=== PATIENT | female | born 1950 ===

== ENCOUNTER 2021-01-05 11:10 | Emergency (ER) | payer MEDICARE, OTHER ==
--- NOTE | 2021-01-05 11:31 | EDM.PDOC ---
ED HPI GENERAL MEDICAL PROBLEM - General Chief Complaint: General Stated Complaint: FEVER X 4 DAYS/CHEST PAIN/TIGHTNESS IN CHEST Time Seen by Provider: 01/05/21 11:31 Source of Information: Reports: Patient, Family, Old Records, RN, RN Notes Dianelys jerez History Limitations: Reports: No Limitations - History of Present Illness INITIAL COMMENTS - FREE TEXT/NARRATIVE: Pt presents to ER from home by POV with c/o COVID symptoms since 12/25/20, and positive COVID test on 12/29/20. Pt comes to ER today because she is still feeling ill with fevers, cough, and chest pains. Pt reports decreased appetite, fatigue, and body aches. Denies shortness of breath. Onset Date: 12/25/20 Duration: Constant Location: Reports: Chest, Generalized Quality: Reports: Ache, Pressure Severity: Mild Improves with: Reports: None Worsens with: Reports: Breathing Associated Symptoms: Reports: No Other Symptoms Treatments UNCRATER: Reports: Acetaminophen - Related Data Allergies Allergy/AdvReac Type Severity Reaction Status Date / Time amoxicillin [From Augmentin] Allergy Cannot Verified 01/05/21 11:25 Remember clavulanic acid Allergy Cannot Verified 01/05/21 11:25 [From Augmentin] Remember Home Meds: Home Meds Acetaminophen [Tylenol Extra Strength] 1,000 mg PO Q6HR PRN 01/05/21 [History] Past Medical History - Infectious Disease History Infectious Disease History: Reports: Novel Coronavirus (12/25/20) Social & Family History - Tobacco Use Tobacco Use Status *Q: Never Tobacco User Second Hand Smoke Exposure: No - Caffeine Use Caffeine Use: Reports: Coffee - Recreational Drug Use Recreational Drug Use: No - Living Situation & Occupation Living situation: Reports: , with Spouse Occupation: Retired ED ROS GENERAL - Review of Systems Review Of Systems: Comprehensive ROS is negative, except as noted in HPI. ED EXAM, GENERAL - Physical Exam Exam: See Below Exam Limited By: No Limitations General Appearance: Alert, WD/WN, No Apparent Distress, Anxious Eye Exam: Bilateral Eye: Normal Inspection Ears: Hearing Grossly Normal Nose: Normal Inspection, Normal Mucosa, No Blood Throat/Mouth: Normal Inspection, Normal Lips, Normal Teeth, Normal Gums, Normal Oropharynx, Normal Voice, No Airway Compromise Head: Atraumatic, Normocephalic Neck: Normal Inspection, Supple, Non-Tender, Full Range of Motion Respiratory/Chest: No Respiratory Distress, Lungs Clear, Normal Breath Sounds, No Accessory Muscle Use, Chest Non-Tender Cardiovascular: Normal Peripheral Pulses, Regular Rate, Rhythm, No Edema, No Gallop, No JVD, No Murmur, No Rub GI/Abdominal: Normal Bowel Sounds, Soft, Non-Tender, No Organomegaly, No Distention, No Abnormal Bruit, No Mass Back Exam: Normal Inspection Extremities: Normal Inspection, Normal Range of Motion, Non-Tender, Normal Capillary Refill, No Pedal Edema Neurological: Alert, Oriented, CN II-XII Intact, Normal Cognition, Normal Gait, No Motor/Sensory Deficits Psychiatric: Normal Affect, Normal Mood Skin Exam: Warm, Dry, Intact, Normal Color, No Rash #1 Interpretation EKG Date: 01/05/21 Time: 11:39 Rhythm: Other (SR) Rate (Beats/Min): 77 [place]: LAD-Left [place] Deviation (borderline) P-Wave: Present QRS: Normal ST-T: Other (borderline abnormal/flat anterolateral T-waves) QT: Normal Comparison: NA - No Prior EKG Course - Vital Signs Last Recorded V/S: Last Vital Signs Temp 97.6 F 01/05/21 11:27 Pulse 85 01/05/21 11:27 Resp 18 01/05/21 11:27 BP 140/72 01/05/21 11:27 Pulse Ox 95 01/05/21 11:27 - Orders/Labs/Meds Orders: Active Orders 24 hr Category Date Time Status EKG 12 Lead [EKG Documentation Completion] [RC] STAT Care 01/05/21 11:31 Active Peripheral IV Care [RC] . DIRECTED Care 01/05/21 11:37 Active Chest wo Cont [CT] Urgent Exams 01/05/21 13:43 Taken CULTURE BLOOD [BC] Stat Lab 01/05/21 11:46 Received Sodium Chloride 0.9% [Saline Flush] Med 01/05/21 11:37 Active 10 ml FLUSH ASDIRECTED PRN Peripheral IV Insertion Adult [OM.PC] Stat Oth 01/05/21 11:37 Ordered Medication Orders Sodium Chloride (Sodium Chloride 0.9% 10 Ml Syringe) 10 ml FLUSH ASDIRECTED PRN PRN Reason: Keep Vein Open Last Admin: 01/05/21 11:50 Dose: 10 ml Documented by: TYRELL Labs: Laboratory Tests 01/05/21 01/05/21 01/05/21 Range/Units 11:46 11:46 11:46 WBC 3.0 L (5.0-10.0) 10^3/uL RBC 4.91 (4.2-5.4) 10^6/uL Hgb 16.0 (12.0-16.0) g/dL Hct 46.1 (37.0-47.0) % MCV 93.9 (80-100) fL MCH 32.6 (27.0-34.0) pg MCHC 34.7 (33.0-35.0) g/dL Plt Count 133 L (150-450) 10^3/uL Neut % (Auto) 56.6 (42.2-75.2) % Lymph % (Auto) 30.2 (20.5-50.1) % [place] % (Auto) 12.6 H (2-8) % Eos % (Auto) 0.3 L (1.0-3.0) % Baso % (Auto) 0.3 (0.0-1.0) % PT 10.4 (9.0-12.0) SEC INR 1.0 (0.9-1.2) APTT 24.7 (22.0-34.0) SEC D-Dimer, Quantitative 446 H (0-400) ng/mL Sodium (136-145) mmol/L Potassium (3.5-5.1) mmol/L Chloride (98-107) mmol/L Carbon Dioxide (21-32) mmol/L Anion Gap (7-13) mEq/L BUN (7-18) mg/dL Creatinine (0.55-1.02) mg/dL Est Cr Clr Drug Dosing mL/min Estimated GFR (MDRD) BUN/Creatinine Ratio (No establ ref range) Glucose (70-99) mg/dL Lactic Acid (0.4-2.0) mmol/L Calcium (8.5-10.1) mg/dL Ferritin (8-252) mg/mL Total Bilirubin (0.2-1.0) mg/dL AST (15-37) U/L ALT (14-59) U/L Alkaline Phosphatase (46-116) U/L Troponin I High Sens (<=51) pg/mL C-Reactive Protein (0.0-0.9) mg/dL B-Natriuretic Peptide (0-100) pg/ml Total Protein (6.4-8.2) g/dL Albumin (3.4-5.0) g/dL Globulin Albumin/Globulin Ratio 01/05/21 01/05/21 01/05/21 Range/Units 12:30 12:30 12:30 WBC (5.0-10.0) 10^3/uL RBC (4.2-5.4) 10^6/uL Hgb (12.0-16.0) g/dL Hct (37.0-47.0) % MCV (80-100) fL MCH (27.0-34.0) pg MCHC (33.0-35.0) g/dL Plt Count (150-450) 10^3/uL Neut % (Auto) (42.2-75.2) % Lymph % (Auto) (20.5-50.1) % [place] % (Auto) (2-8) % Eos % (Auto) (1.0-3.0) % Baso % (Auto) (0.0-1.0) % PT (9.0-12.0) SEC INR (0.9-1.2) APTT (22.0-34.0) SEC D-Dimer, Quantitative (0-400) ng/mL Sodium 139 (136-145) mmol/L Potassium 3.2 L (3.5-5.1) mmol/L Chloride 98 (98-107) mmol/L Carbon Dioxide 32 (21-32) mmol/L Anion Gap 12.2 (7-13) mEq/L BUN 14 (7-18) mg/dL Creatinine 0.67 (0.55-1.02) mg/dL Est Cr Clr Drug Dosing 71.05 mL/min Estimated GFR (MDRD) > 60 BUN/Creatinine Ratio 20.9 (No establ ref range) Glucose 112 H (70-99) mg/dL Lactic Acid 1.0 (0.4-2.0) mmol/L Calcium 8.6 (8.5-10.1) mg/dL Ferritin 586 H (8-252) mg/mL Total Bilirubin 0.7 (0.2-1.0) mg/dL AST 151 H (15-37) U/L ALT 161 H (14-59) U/L Alkaline Phosphatase 96 (46-116) U/L Troponin I High Sens 7 (<=51) pg/mL C-Reactive Protein 0.3 (0.0-0.9) mg/dL B-Natriuretic Peptide 28 (0-100) pg/ml Total Protein 7.3 (6.4-8.2) g/dL Albumin 3.4 (3.4-5.0) g/dL Globulin 3.9 Albumin/Globulin Ratio 0.9 Meds: Medications Generic Name Dose Route Start Last Admin Trade Name Freq PRN Reason Stop Dose Admin Sodium Chloride 10 ml 01/05/21 11:37 01/05/21 11:50 Sodium Chloride 0.9% 10 Ml Syringe FLUSH 10 ml ASDIRECTED PRN Administration Keep Vein Open Discontinued Medications Generic Name Dose Route Start Last Admin Trade Name Freq PRN Reason Stop Dose Admin Dexamethasone 6 mg 01/05/21 11:38 01/05/21 11:50 Dexamethasone 4 Mg/Ml Sdv IVPUSH 01/05/21 11:39 6 mg ONETIME ONE Administration Potassium Chloride 60 meq 01/05/21 13:42 Potassium Chloride 10 Meq Tab.Er PO 01/05/21 13:43 ONETIME ONE - Radiology Interpretation Free Text/Narrative:: CT Chest: patchy ground glass opacities, mild and bilateral, see Rad. report. Departure - Departure Time of Disposition: 14:25 Disposition: Home, Self-Care 01 Condition: Good Clinical Impression: COVID-19 virus infection, Hypokalemia - Discharge Information *PRESCRIPTION DRUG MONITORING PROGRAM REVIEWED*: Not Applicable *COPY OF PRESCRIPTION DRUG MONITORING REPORT IN PATIENT AYAZ: Not Applicable Instructions: 10 Things You Can Do to Manage Your COVID-19 Symptoms at Home - CDC, Hypokalemia, Potassium Content of Foods Forms: ED Department Discharge Additional Instructions: Rx: Decadron (Dexamethasone) 6mg Eat three meals a day even if your appetite is poor. Eat bananas, spinach, or potato with the skins to increase your potassium. Follow up in clinic if not improving in 7 to 10 days. Call 911 or return to ER if your develop difficulty breathing. Sepsis Event Note (ED) - Evaluation Sepsis Screening Result: No Definite Risk - Focused Exam Vital Signs: Vital Signs Temp Pulse Resp BP Pulse Ox 01/05/21 11:27 97.6 F 85 18 140/72 95 - My Orders Last 24 Hours: My Active Orders 01/05/21 11:31 EKG 12 Lead [EKG Documentation Completion] [RC] STAT 01/05/21 11:37 Peripheral IV Care [RC] . DIRECTED Sodium Chloride 0.9% [Saline Flush] 10 ml FLUSH ASDIRECTED PRN Peripheral IV Insertion Adult [OM.PC] Stat 01/05/21 11:46 CULTURE BLOOD [BC] Stat 01/05/21 13:43 Chest wo Cont [CT] Urgent - Assessment/Plan Last 24 Hours: My Active Orders 01/05/21 11:31 EKG 12 Lead [EKG Documentation Completion] [RC] STAT 01/05/21 11:37 Peripheral IV Care [RC] . DIRECTED Sodium Chloride 0.9% [Saline Flush] 10 ml FLUSH ASDIRECTED PRN Peripheral IV Insertion Adult [OM.PC] Stat 01/05/21 11:46 CULTURE BLOOD [BC] Stat 01/05/21 13:43 Chest wo Cont [CT] Urgent
[2021-01-05] MEDS ORDERED: Sodium Chloride 0.9% 10 ML Syringe FLUSH PRN (11:37)
[2021-01-05] MEDS ORDERED: Dexamethasone 4 MG/ML SDV IVPUSH ONE (11:38)
[2021-01-05 13:02] LABS: PTT,PARTIAL THROMBOPLSTIN TIME 24.7 SEC (22.0-34.0)
[2021-01-05 13:06] LABS: ANION GAP 12.2 mEq/L (7-13); CHLORIDE,CL 98 mmol/L (98-107); SODIUM,NA 139 mmol/L (136-145)
[2021-01-05] MEDS ORDERED: Potassium Chloride 10 MEQ Tab.ER PO ONE (13:42)
--- NOTE | 2021-01-05 14:43 | CT ---
PROCEDURE INFORMATION: Exam: CT Chest Without Contrast; Diagnostic Exam date and time: 01/05/2021 1:54 PM Age: 70 years old Clinical indication: Chest wall pain; Additional info: Covid positive chest pain TECHNIQUE: Imaging protocol: Diagnostic computed tomography of the chest without contrast. Radiation optimization: All CT scans at this facility use at least one of these dose optimization techniques: automated exposure control; mA and/or kV adjustment per patient size (includes targeted exams where dose is matched to clinical indication); or iterative reconstruction. COMPARISON: No relevant prior studies available. FINDINGS: Lungs: There are scattered predominantly peripheral ground-glass and interstitial opacities predominantly in the right lung. There are few small ground-glass infiltrates in left lung base. Pleural spaces: Unremarkable. No pneumothorax. No pleural effusion. Heart: There are coronary artery calcifications. No cardiomegaly Aorta: Unremarkable. No aortic aneurysm. Lymph nodes: Unremarkable. No enlarged lymph nodes. Liver: There is hepatic steatosis Bones/joints: Unremarkable. No acute fracture. Soft tissues: Unremarkable. IMPRESSION: Interstitial and ground-glass opacities throughout both lungs. Atypical viral pneumonia could be considered in the appropriate clinical setting.
== END 2021-01-05 15:01 | disposition home or self-care (01) ==
LOC: DL.ED 11:10
DX: U07.1 COVID-19 (principal); E87.6 Hypokalemia; Z88.0 Allergy status to penicillin; Z88.1 Allergy status to other antibiotic agents
CPT/HCPCS: 36415; 71250; 80053; 82728; 83605; 83880; 84484; 85025; 85379; 85610; 85730; 86140; 87040; 93005; 96374; 99284; A9270; J1100